=== PATIENT | male | born 1985 | race African-American/Black ===

== ENCOUNTER 2019-11-04 02:37 | Emergency (ER) | payer OTHER ==
[2019-11-04 02:47] VITALS: TEMP 98.2
--- NOTE | 2019-11-04 02:51 | ED ---
Psych HPI - General Source: patient, police, RN notes reviewed, old records reviewed Mode of arrival: ambulatory (PD) - History of Present Illness MD Complaint: altered mental status -: hour(s) Associated Psychiatric Symptoms: racing thoughts, delusions Quality: constant Improves With: none Worsens With: drug use Context: significant life stressor Associated Symptoms: confusion Treatments Prior to Arrival: placed on mental health hold <Momo Haynes - Last Filed: 11/04/19 06:31> <Reggie Martini - Last Filed: 11/04/19 08:39> - General Chief Complaint: Psychiatric Symptoms Stated Complaint: Mental health Time Seen by Provider: 11/04/19 02:41 - History of Present Illness Initial Comments: This is a 33-year-old male presents [facility] for evaluation of psychiatric illness. Patient presents by PD was called. He is patient was having some delusional hallucinations at home. In route here patient admits to some nonprescribed Gibbs that he took today. As well as other medication and pills. Patient woke from sleep in the situation. Patient at this time does know rias now he got here. Homicidal or suicidal (Momo Haynes) - Related Data Home Medications Medication Instructions Recorded Confirmed Acetaminophen Tab [Tylenol Tab] 1,000 mg PO Q8H PRN 11/04/19 11/04/19 Elderberry Fruit and Flower [Black 1 cap PO DAILY 11/04/19 11/04/19 Elderberry 575 mg Cap] [place] 1 cap PO DAILY 11/04/19 11/04/19 Allergies Allergy/AdvReac Type Severity Reaction Status Date / Time ibuprofen [From Motrin IB] Allergy Rash/Hives Verified 11/04/19 07:34 Review of Systems ROS Other: All systems not noted in ROS Statement are negative. <Momo Haynes - Last Filed: 11/04/19 06:31> ROS Other: All systems not noted in ROS Statement are negative. <Reggie Martini - Last Filed: 11/04/19 08:39> ROS Statement: Those systems with pertinent positive or pertinent negative responses have been documented in the HPI. Past Medical History Past Medical History: No Reported History History of Any Multi-Drug Resistant Organisms: None Reported Past Surgical History: No Surgical Hx Reported Past Psychological History: No Psychological Hx Reported Smoking Status: Current every day smoker Past Alcohol Use History: None Reported Past Drug Use History: None Reported <Momo Haynes - Last Filed: 11/04/19 06:31> General Exam Limitations: no limitations General appearance: alert, appears intoxicated, anxious Head exam: Present: atraumatic, normocephalic, normal inspection Eye exam: Present: normal appearance, PERRL, EOMI. Absent: scleral icterus, conjunctival injection, periorbital swelling ENT exam: Present: normal exam, mucous membranes moist Neck exam: Present: normal inspection. Absent: tenderness, meningismus, lymphadenopathy Respiratory exam: Present: normal lung sounds bilaterally. Absent: respiratory distress, wheezes, rales, rhonchi, stridor Cardiovascular Exam: Present: normal rhythm, tachycardia, normal heart sounds. Absent: systolic murmur, diastolic murmur, rubs, gallop, clicks GI/Abdominal exam: Present: soft, normal bowel sounds. Absent: distended, tenderness, guarding, rebound, rigid Extremities exam: Present: normal inspection, full ROM, normal capillary refill. Absent: tenderness, pedal edema, joint swelling, calf tenderness Back exam: Present: normal inspection Neurological exam: Present: alert, oriented X3, CN II-XII intact Psychiatric exam: Present: normal affect, normal mood Skin exam: Present: warm, dry, intact, normal color. Absent: rash <Momo Haynes - Last Filed: 11/04/19 06:31> Course <Momo Haynes - Last Filed: 11/04/19 06:31> Vital Signs 11/04/19 11/04/19 11/04/19 02:42 04:20 05:47 Temperature 98.2 F Pulse Rate 139 H 108 H 93 Respiratory 18 17 16 Rate Blood Pressure 136/81 138/77 138/81 O2 Sat by Pulse 100 98 97 Oximetry - Reevaluation(s) Reevaluation #1: 11/04/19 06:33 Medical records reviewed (Momo Haynes) Reevaluation #2: 11/04/19 06:33 Patient clear for psychiatric evaluation (Momo Haynes) Medical Decision Making - Lab Data Result diagrams: 11/04/19 05:25 11/04/19 05:25 <Momo Haynes - Last Filed: 11/04/19 06:31> - Lab Data Result diagrams: 11/04/19 05:25 11/04/19 05:25 <Reggie Martini - Last Filed: 11/04/19 08:39> - Medical Decision Making Patient evaluated by EPS, felt to be drug related, patient is positive for cocaine. Did reevaluate the patient is resting comfortable, no suicidal or homicidal ideation. No psychotic features. Patient signed a safety plan and has outpatient follow-up. (Reggie Martini) - Lab Data Lab Results 11/04/19 11/04/19 11/04/19 Range/Units 05:25 05:25 07:02 WBC 8.7 (3.8-10.6) k/uL RBC 4.93 (4.30-5.90) m/uL Hgb 14.7 (13.0-17.5) gm/dL Hct 44.5 (39.0-53.0) % MCV 90.2 (80.0-100.0) fL MCH 29.7 (25.0-35.0) pg MCHC 32.9 (31.0-37.0) g/dL RDW 13.9 (11.5-15.5) % Plt Count 287 (150-450) k/uL Neutrophils % 82 % Lymphocytes % 13 % Monocytes % 2 % Eosinophils % 2 % Basophils % 0 % Neutrophils # 7.1 (1.3-7.7) k/uL Lymphocytes # 1.1 (1.0-4.8) k/uL Monocytes # 0.2 (0-1.0) k/uL Eosinophils # 0.2 (0-0.7) k/uL Basophils # 0.0 (0-0.2) k/uL Sodium 139 (137-145) mmol/L Potassium 4.2 (3.5-5.1) mmol/L Chloride 108 H (98-107) mmol/L Carbon Dioxide 22 (22-30) mmol/L Anion Gap 9 mmol/L BUN 15 (9-20) mg/dL Creatinine 1.00 (0.66-1.25) mg/dL Est GFR (CKD-EPI)AfAm >90 (>60 ml/min/1.73 sqM) Est GFR (CKD-EPI)NonAf >90 (>60 ml/min/1.73 sqM) Glucose 102 H (74-99) mg/dL Calcium 9.5 (8.4-10.2) mg/dL Magnesium 2.0 (1.6-2.3) mg/dL Total Bilirubin 0.3 (0.2-1.3) mg/dL AST 21 (17-59) U/L ALT 21 (4-49) U/L Alkaline Phosphatase 44 (38-126) U/L Creatine Kinase 210 H (55-170) U/L Total Protein 7.8 (6.3-8.2) g/dL Albumin 4.9 (3.5-5.0) g/dL Lipase 54 (23-300) U/L Salicylates 2.3 mg/dL Urine Opiates Screen Not Detected (NotDetected) Ur Oxycodone Screen Not Detected (NotDetected) Urine Methadone Screen Not Detected (NotDetected) Ur Propoxyphene Screen Not Detected (NotDetected) Acetaminophen <10.0 ug/mL Ur Barbiturates Screen Not Detected (NotDetected) U Tricyclic Antidepress Not Detected (NotDetected) Ur Phencyclidine Scrn Not Detected (NotDetected) Ur Amphetamines Screen Not Detected (NotDetected) U Methamphetamines Scrn Not Detected (NotDetected) U Benzodiazepines Scrn Not Detected (NotDetected) Urine Cocaine Screen Detected H (NotDetected) U Marijuana (THC) Screen Not Detected (NotDetected) Serum Alcohol <10 mg/dL Disposition <Momo Haynes B - Last Filed: 11/04/19 06:31> Is patient prescribed a controlled substance at d/c from ED?: No Time of Disposition: 08:39 <Reggie Martini - Last Filed: 11/04/19 08:39> Clinical Impression: Psychosis, Drug-induced psychotic disorder Disposition: HOME SELF-CARE Condition: Fair Referrals: Corby Orta MD [Primary Care Provider] - 1-2 days
[2019-11-04] MEDS ORDERED: SODIUM CHLORIDE 0.9% 1,000 ML IV STA (05:13)
[2019-11-04 05:38] LABS: Basophils % (A) 0 %; Eosinophils # (A) 0.2 k/uL (0-0.7); Eosinophils % (A) 2 %; HCT 44.5 % (39.0-53.0); HGB 14.7 gm/dL (13.0-17.5); Lymphocytes # (A) 1.1 k/uL (1.0-4.8); Lymphocytes % (A) 13 %; MCH 29.7 pg (25.0-35.0); MCHC 32.9 g/dL (31.0-37.0); MCV 90.2 fL (80.0-100.0); Mean Platelet Volume 7.1; Monocytes # (A) 0.2 k/uL (0-1.0); Monocytes % (A) 2 %; Neutrophils # (A) 7.1 k/uL (1.3-7.7); Neutrophils % (A) 82 %; Platelet Count 287 k/uL (150-450); RBC 4.93 m/uL (4.30-5.90); RDW 13.9 % (11.5-15.5); WBC 8.7 k/uL (3.8-10.6)
[2019-11-04 05:50] LABS: ALT 21 U/L (4-49); AST 21 U/L (17-59); Acetaminophen <10.0 ug/mL; African American GFR (CKD) >90 (>60 ml/min/1.73 sqM); Albumin 4.9 g/dL (3.5-5.0); Alcohol <10 mg/dL; Alkaline Phosphatase 44 U/L (38-126); Anion Gap 9 mmol/L; Blood Urea Nitrogen 15 mg/dL (9-20); Calcium 9.5 mg/dL (8.4-10.2); Carbon Dioxide 22 mmol/L (22-30); Chloride 108 mmol/L (98-107); Creatine Kinase 210 U/L (55-170); Glucose 102 mg/dL (74-99); Non-African American GFR(CKD) >90 (>60 ml/min/1.73 sqM); Potassium 4.2 mmol/L (3.5-5.1); Salicylate 2.3 mg/dL; Sodium 139 mmol/L (137-145); Total Bilirubin 0.3 mg/dL (0.2-1.3); Total Protein 7.8 g/dL (6.3-8.2)
[2019-11-04 07:23] LABS: Amphetamine Screen,Urine Not Detected (NotDetected); Barbiturate Screen,Urine Not Detected (NotDetected); Benzodiazepines Screen,Urine Not Detected (NotDetected); Cocaine Screen,Urine Detected (NotDetected); Methadone Screen, Urine Not Detected (NotDetected); Opiate Screen,Urine Not Detected (NotDetected); Oxycodone Screen, Urine Not Detected (NotDetected); Phencyclidine Screen,Urine Not Detected (NotDetected); Tricyclic Antidepressant,Urine Not Detected (NotDetected); Urn Cannabinoid Scrn Not Detected (NotDetected)
[2019-11-04 09:09] VITALS: BP 130/84; PULSE 91; RESP 20
== END 2019-11-04 08:58 | disposition home or self-care (01) ==
LOC: EC 02:37
DX: F15.951 Other stimulant use, unspecified with stimulant-induced psychotic disorder with hallucinations (principal); R00.0 Tachycardia, unspecified; F10.129 Alcohol abuse with intoxication, unspecified; F17.200 Nicotine dependence, unspecified, uncomplicated; Z88.6 Allergy status to analgesic agent
CPT/HCPCS: 82075; 36415; 80053; 82550; 83690; 83735; 85025; 80306; 83520; 99285; 96360; G0480 ×2; 80320; 80329